=== PATIENT | male | born 1990 | race Caucasian/White ===

== ENCOUNTER 2022-01-29 17:18 | Emergency (ER) | payer OTHER ==
[2022-01-29] MEDS ORDERED: CEPHALEXIN500 MG PO (19:46)
[2022-01-29] MEDS ORDERED: PERCOCET 5-3251 EACH PO (19:46)
== END 2022-01-29 20:10 | disposition home or self-care (01) ==
LOC: ER1 17:18
DX: S42.031A Displaced fracture of lateral end of right clavicle, initial encounter for closed fracture (principal); S01.01XA Laceration without foreign body of scalp, initial encounter; V49.9XXA Car occupant (driver) (passenger) injured in unspecified traffic accident, initial encounter
CPT/HCPCS: 12005; 70450; 71045; 72125; 73000; 99284